=== PATIENT | female | born 1995 | race Caucasian/White ===

== ENCOUNTER 2021-08-13 21:18 | Emergency (ER) | payer OTHER ==
[~2021-08-13 21:18] MED LIST: KEPPRA500 MG PO
[2021-08-14] MEDS ORDERED: NORFLEX 100 MG100 MG PO (01:07)
[2021-08-14] MEDS ORDERED: IBUPROFEN600 MG PO (01:07)
== END 2021-08-14 01:23 | disposition home or self-care (01) ==
LOC: ER1 21:18
DX: S16.1XXA Strain of muscle, fascia and tendon at neck level, initial encounter (principal); S39.012A Strain of muscle, fascia and tendon of lower back, initial encounter; Z88.1 Allergy status to other antibiotic agents; V49.40XA Driver injured in collision with unspecified motor vehicles in traffic accident, initial encounter; Y92.410 Unspecified street and highway as the place of occurrence of the external cause
CPT/HCPCS: 72125; 72131; 99282; 99283